=== PATIENT | male | born 1970 | race American Indian/Alaskan Native ===

== ENCOUNTER 2020-05-16 12:46 | Emergency (ER) | payer MEDICARE ==
[2020-05-16 12:51] VITALS: BP 115/79
[2020-05-16] MEDS ORDERED: LIDOCAINE (2%) 20 MG/1 ML VIAL 20 ML MDV INFILTRATI STA (14:58)
[2020-05-16] MEDS ORDERED: DIPHtheria,PERTUSSIS(ACELL),TETANUS VACCINE/PF 0.5 ML VIAL IM ONE (17:11)
--- NOTE | 2020-05-16 17:17 | Emergency Department Report ---
ED Laceration HPI - HPI Chief Complaint: Wound/Laceration Stated Complaint: CUT FINGER Time Seen by Provider: 05/16/20 14:57 Occurred When: Today Location: Upper Extremity Severity: mild Tetanus Status: Not up to Date Laceration Symptoms: Yes Pain, No Foreign Body Sensation, No Numbness, No Weakness Other History: 50-year-old F [place] male was cutting sausages with a knife while in the kitchen and accidentally cut his right index finger with a knife. And began bleeding presents emergency department with a caregiver seeking laceration repair. ED Review of Systems ROS: Stated complaint: CUT FINGER Other details as noted in HPI Comment: All other systems reviewed and negative ED Past Medical Hx - Past Medical History Previous Medical History?: Yes Hx Psychiatric Treatment: Yes (BIPOLAR/ SCHIZOAFFECTIVE DISORDER) - Surgical History Past Surgical History?: Yes Additional Surgical History: HERNIA REPAIR - Social History Smoking Status: Light Tobacco Smoker Substance Use Type: None - Medications Home Medications: Home Medications Medication Instructions Recorded Confirmed Last Taken Type cephALEXin [Keflex] 500 mg PO Q12HR #20 cap 05/16/20 Unknown Rx Laceration Physical Exam - Exam General: Vital signs noted. No distress. Alert and acting appropriately. Wound Length (cm): 2 Laceration Location: Upper Extremity (Pain exacerbation. 1.5 cm in length) Laceration Exam: Yes Normal Distal CMS, No Foreign Body, No Exposed Tendon, Vessel, or Nerve, No Tendon Injury ED Course Vital Signs 05/16/20 12:50 Temperature 98 F Pulse Rate 77 Respiratory 16 Rate Blood Pressure 115/79 [Left] O2 Sat by Pulse 98 Oximetry - Procedure Description Procedures done: Laceration repair of right index finger. Wound prepped and draped in sterile fashion anesthesia achieved with 2% lidocaine with no epinephrine 4-0 Prolene was placed in simple operative fashion for wound closure with good approximation times 4 sutures. No complication procedure was tolerated well estimated blood loss less than 2 cc. Critical care attestation.: If time is entered above; I have spent that time in minutes in the direct care of this critically ill patient, excluding procedure time. ED Disposition Clinical Impression: Laceration of finger, Tetanus toxoid inoculation Disposition: - TO HOME OR SELFCARE Is pt being admited?: No Does the pt Need Aspirin: No Condition: Stable Instructions: Laceration (ED), Finger Laceration (ED), Diphtheria Tetanus and Pertussis Vaccination (ED), Tetanus Toxoid (Injection) Additional Instructions: Please be sure to follow-up with your primary care provider to be evaluated for possible suture removal in 10 days keep wound clean antibiotic soap and water as we discussed Prescriptions: cephALEXin [Keflex] 500 mg PO Q12HR #20 cap Referrals: JIM LOMAS MD [Primary Care Provider] - 3-5 Days
== END 2020-05-16 17:50 | disposition home or self-care (01) ==
LOC: ED 12:46
DX: S61.210A Laceration without foreign body of right index finger without damage to nail, initial encounter (principal); F31.9 Bipolar disorder, unspecified; F17.200 Nicotine dependence, unspecified, uncomplicated; Z98.890 Other specified postprocedural states; Z79.899 Other long term (current) drug therapy; W26.0XXA Contact with knife, initial encounter; Y93.89 Activity, other specified; Y92.000 Kitchen of unspecified non-institutional (private) residence as the place of occurrence of the external cause; Y99.8 Other external cause status
CPT/HCPCS: 90471; 90715; 99282